=== PATIENT | female | born 1985 | race Caucasian/White ===

== ENCOUNTER 2017-05-07 11:30 | Emergency (ER) | payer OTHER ==
[~2017-05-07] VITALS: Ht 180.3 cm; Wt 106.0 kg
[2017-05-07 11:33] VITALS: Ht 180.3 cm; Wt 106.0 kg
[2017-05-07] MEDS ORDERED: SERT-234 PO (11:50)
[2017-05-07] MEDS ORDERED: PRENTAB26 PO (11:50)
[2017-05-07 12:05] VITALS: TEMP 36.7
[2017-05-07] MEDS ORDERED: LIDO/EPINEPHRINE/SOD BICARB 20 ML VIAL INFIL ONE (12:30)
[2017-05-07] MEDS ORDERED: SULFAMETHOXAZOLE/TRIMETHOPRIM DS 800/160MG TAB PO STA (13:03)
[2017-05-07] MEDS ORDERED: SULF800T23 PO (13:09)
--- NOTE | 2017-05-07 13:11 | EMERGENCY ROOM VISIT NOTE ---
ED Visit Note First contact with patient: 11:53 CHIEF COMPLAINT: Infection of the left upper extremity Nexplanon implant HISTORY OF PRESENT ILLNESS: Patient is a [id number] 31-year-old white female who presents emergency department for evaluation of an infection involving the Nexplanon implant in her left upper extremity was placed 4 days ago. Patient had the implant placed at her [facility] office at [facility] on Wednesday, 4 days ago. She states that she had some expected bruising , but she has noticed steadily worsening soreness at the site since it was placed. She began to notice increased redness and warmth in the last 2 days, and states that she had puslike drainage from the insertion site last evening and then again this morning. 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 She was last on oral antibiotics about a year ago. She denies fever, chills, nausea, vomiting or malaise. She occasionally notes some sharp pain in the left upper arm with certain movements. At its worst she rates her pain an 8/10. She called her [facility] office and they cannot see her for another 5 days. She is concerned given her history of MRSA that a worsening infection will develop, and is requesting to have the implant removed. REVIEW OF SYSTEMS: Review of systems as per HPI. All other systems reviewed were negative. 10 systems reviewed. PMH: Electronic medical records are reviewed and summarized as above/below. See Problem List. Tetanus is up-to-date. SOCIAL HISTORY: Patient lives at home with her 2 daughters. She is not presently employed, smokes one pack of cigarettes daily. PHYSICAL EXAM: Vital Signs: Reviewed Nurse's notes. CONSTITUTIONAL: Patient is a pleasant, well-appearing 31-year-old white female who was awake and alert and in no acute distress. INTEGUMENTARY: Examination of the medial left upper arm, over the biceps region show an area of ecchymosis. She has some peripheral irritation from recent bandages. Centrally, there is a small, scabbed over puncture wound consistent with the implant insertion site. The implant is palpable, there is some surrounding erythema, and it is tender to palpation. There is no overt increased warmth, induration or overtly cellulitic changes. No fluctuance noted. No lymphangitic streaking. No axillary lymphadenopathy noted. The left upper extremity is neurovascularly intact. EMERGENCY DEPARTMENT COURSE: The patient was seen and evaluated as above. She is concerned regarding infection at the site of her Nexplanon implant, and has a history of MRSA which has required I&D in the past. She is unable to get in with [facility] in a timely manner, and is concerned that even if she is placed on appropriate antibiotic therapy, infection will worsen. She is requesting removal of the I&D. Risks, benefits and alternatives were reviewed with the patient and she was agreeable to proceed. The area on the left upper arm was cleansed with Betadine 3 and allowed to dry. Site was draped sterilely, and the implant was palpated. The lateral end of the implant was marked, and the skin overlying the area was anesthetized with 1% buffered lidocaine with epinephrine. A small incision was made using an 11 blade. A small hemostat was used to dissect through the tissue, and easily grasped the implant which was removed in its entirety. The abscess cavity was then irrigated copiously using an 18-gauge Angiocath and normal saline solution. There was no purulent drainage able to be expressed, the stab incision was left open to allow for drainage. Wound was not amenable to packing. Antibiotic ointment and a sterile dressing were applied. Patient tolerated the procedure well. Patient was given Bactrim DS 1 tablet orally in the emergency department. She has Bactroban ointment at home that she can use. She is well versed on the signs and symptoms of infection, and was encouraged to monitor for these over the next several days, and is welcome to return to the emergency department at any point if her symptoms have worsened. She is encouraged to use a backup method of contraception until she can follow up with her [facility] for more definitive measures. Follow up with her PCP next week for recheck. Medication reconciliation: I attest that I have personally reviewed the patient' s current medication list. Blood pressure screening : Patient was found to have normal blood pressure on screening and does not require follow-up. Problem List Medical Problems: (1) Asthma Status: Chronic (2) Hx MRSA infection Status: Chronic (3) Ovarian cyst Status: Resolved Surgical Problems: (1) History of section Status: Resolved (2) History of ovarian cystectomy Status: Resolved Current/Historical Medications Scheduled Multivit/Min/Iron/Fol Ac/Pren ( Vitamin), 1 TAB PO DAILY Sertraline (Zoloft), 100 MG PO DAILY Sulfa/Trimethoprim (Bactrim Ds 800MG/160MG), 1 TAB PO BID Allergies Coded Allergies: No Known Allergies (Unverified , 05/07/17) Vital Signs Date Time Temp Pulse Resp B/P (MAP) Pulse Ox O2 Delivery O2 Flow Rate FiO2 05/07/17 13:30 76 15 129/75 98 05/07/17 12:05 36.7 78 17 127/71 100 Room Air 05/07/17 11:33 36.7 82 20 137/78 100 Room Air Medications Administered Medications (Trade) Dose Ordered Sig/Eris Route Start Time Stop Time Status Last Admin Dose Admin Lidocaine/ Epinephrine (Buffered Xylocaine/ Epinephrine 1% Inj) 20 ml NOW ONCE INFIL 05/07/17 12:30 05/07/17 12:31 DC 05/07/17 13:25 20 ML Trimethoprim/ Sulfamethoxazole (Septra Ds 800/ 160MG Tab) 1 tab NOW STAT PO 05/07/17 13:03 05/07/17 13:04 DC 05/07/17 13:24 1 TAB Departure Information Impression Primary Impression: Wound infection Additional Impression: Encounter for Nexplanon removal Prescriptions Sulfa/Trimethoprim (Bactrim Ds 800MG/160MG) Tab 1 TAB PO BID, #14 TAB Prov: Lashaun Huston PA 05/07/17 Referrals No Doctor, Assigned (PCP) Patient Instructions My [facility] Additional Instructions Keep wound clean. Cleanse daily with mild soap and water. Use an antibiotic ointment and a bandage until healed. Trimethoprim-Sulfamethoxazole(Bactrim DS): Take one pill twice daily for 7 days for your skin infection. All antibiotics can cause diarrhea. If this occurs and you feel worse or it does not resolve in 1-2 days follow up with your doctor or return to the Emergency Department as this could be signs of serious underlying problems. Any medication can cause an allergic reaction, stop the pills immediately and return to the ER for rash, hives, breathing difficulties, or swelling. Ibuprofen(Motrin, Advil) may be used for fever or pain. Use 600mg every six hours as needed. Take with food. Avoid using more than 2400mg in a 24 hour period. Do not use 2400mg per day for more than three consecutive days without physician direction. Prolonged inappropriate use can lead to stomach upset or ulcers. (AND/OR) Acetaminophen(Tylenol) may be used for fever or pain. Use 1000mg every six hours as needed. Avoid using more than 3000mg in a 24 hour period. Warm compresses to the affected area 4 times daily for 15-20 minutes. Rest and drink plenty of fluids. Continue current medications. Return to the ER for severe pain, persistent fevers, spreading redness, or any worsening of your condition. Follow up with your primary physician and [facility] next week for recheck. Problem Qualifiers
[2017-05-07 13:30] VITALS: BP 129/75; PULSE 76; O2SAT 98
== END 2017-05-07 13:30 | disposition home or self-care (01) ==
LOC: C.EDB 11:33
DX: L08.9 Local infection of the skin and subcutaneous tissue, unspecified (principal); Z30.46 Encounter for surveillance of implantable subdermal contraceptive; Z86.14 Personal history of Methicillin resistant Staphylococcus aureus infection; J45.909 Unspecified asthma, uncomplicated